=== PATIENT | female | born 2000 | race African-American/Black ===

== ENCOUNTER 2023-09-12 15:16 | Emergency (ER) | payer OTHER ==
[2023-09-12 15:43] VITALS: O2SAT 100
[2023-09-12 16:05] LABS: BASOPHILS % (AUTO) 0.5 %; EOSINOPHILS % (AUTO) 0.3 %; HCT - HEMATOCRIT 44.8 % (37.0-47.0); HGB - HEMOGLOBIN 13.8 g/dL (12.0-16.0); LYMPHOCYTES # (AUTO) 0.9 10^3/uL (1.5-3.5); LYMPHOCYTES % (AUTO) 15.2 %; MEAN CORPUSCULAR HEMOGLOBIN 26.4 pg (27.0-31.0); MEAN CORPUSCULAR HGB CONC 30.8 g/dL (32.0-36.0); MEAN CORPUSCULAR VOLUME 85.7 fL (81.0-99.0); MEAN PLATELET VOLUME 10.3 fL (7.9-10.8); MONOCYTES # (AUTO) 0.5 10^3/uL (0.0-1.0); MONOCYTES % (AUTO) 7.9 %; NEUTROPHILS # (AUTO) 4.5 10^3/uL (1.5-6.6); NEUTROPHILS % (AUTO) 75.9 %; PLT - PLATELET COUNT 249 10^3/uL (130-450); RED BLOOD COUNT 5.23 10^6/uL (4.20-5.40); RED CELL DISTRIBUTION WIDTH 11.8 % (12.0-15.0)
[2023-09-12 16:14] LABS: ALBUMIN 4.2 g/dL (3.2-5.5); ALKALINE PHOSPHATASE 40 IU/L (42-121); ALT ALANINE AMINOTRANSFERASE 22 IU/L (10-60); AST ASPARTATE AMINOTRANSFERASE 19 IU/L (10-42); BUN - BLOOD UREA NITROGEN 9 mg/dL (6-20); CALCIUM 10.2 mg/dL (8.5-10.3); CARBON DIOXIDE - CO2 30 mmol/L (21-32); CHLORIDE 103 mmol/L (101-111); CREATININE 0.6 mg/dL (0.6-1.3); GFR - MDRD 126 (>89); GLUCOSE 106 mg/dL (74-104); POTASSIUM 3.7 mmol/L (3.5-4.5); SODIUM 137 mmol/L (135-145); TOTAL PROTEIN 8.4 g/dL (6.4-8.9)
[2023-09-12 16:26] LABS: LIPASE < 10 U/L (11-82)
--- NOTE | 2023-09-12 17:01 | ED Physician Documentation ---
PD HPI ABD PAIN - Stated complaint Stated Complaint: Pelvic pain - Chief complaint Chief Complaint: Abd Pain - Additional information Additional information: 22-year-old female presents emergency department for generalized abdominal pain. Patient said that she has had episodes of this in the past where she went to the emergency department nothing was found she was given IV fluids and symptoms resolved. Patient said a couple hours ago she started to experience right lower quadrant pain she is not taking Tylenol or ibuprofen for any pain or discomfort she has not had any recent fevers or chills she endorses some mild nausea no emesis. She says her now her pain feels generalized and overall feels like her pain is actually subsided since she has been in the emergency department. She says my main concern is that my intestines are okay because I do not know why this keeps happening. She refers to 2 other episodes of this happening in the past that have self resolved spontaneously on their own. PD PAST MEDICAL HISTORY - Past Medical History Cardiovascular: None Respiratory: None Neuro: None Endocrine/Autoimmune: None GI: None LEASING AGENT: None : None HEENT: None Psych: None Musculoskeletal: None Derm: None - Past Surgical History Past Surgical History: Yes - Present Medications Home Medications: Ambulatory Orders Medication Instructions Recorded Confirmed Ondansetron Odt [Zofran Odt] 4 mg TL Q6H PRN #10 tablet 09/12/23 - Allergies Allergies/Adverse Reactions: Allergies Allergy/AdvReac Type Severity Reaction Status Date / Time No Known Drug Allergies Allergy Verified 09/12/23 15:37 - Social History Does the pt smoke?: No Smoking Status: Never smoker Does the pt drink ETOH?: No Does the pt have substance abuse?: No - Immunizations Immunizations are current?: Yes - POLST Patient has POLST: No PD ED PE NORMAL - Vitals Vital signs reviewed: Yes - General General: Alert and oriented X 3, No acute distress, Well developed/nourished - Cardiac Cardiac: RRR - Respiratory Respiratory: No respiratory distress - Abdomen Abdomen: Normal bowel sounds, Soft, Non tender, Non distended, No organomegaly - Back Back: No CVA TTP - Derm Derm: Normal color, Warm and dry, No rash - Psych Psych: Normal mood, Normal affect Results - Vitals Vitals: Vital Signs - 24 hr 09/12/23 09/12/23 15:39 17:40 Temperature 36.6 C 36.7 C Heart Rate 88 84 Respiratory 16 16 Rate Blood Pressure 128/73 113/67 O2 Saturation 100 100 Oxygen O2 Source Room air - Labs Labs: Laboratory Tests 09/12/23 09/12/23 09/12/23 15:52 15:52 15:52 WBC 6.0 RBC 5.23 Hgb 13.8 Hct 44.8 MCV 85.7 MCH 26.4 L MCHC 30.8 L RDW 11.8 L Plt Count 249 MPV 10.3 Neut # (Auto) 4.5 Lymph # (Auto) 0.9 L Pender # (Auto) 0.5 Eos # (Auto) 0.0 Baso # (Auto) 0.0 Absolute Nucleated RBC 0.00 Nucleated RBC % 0.0 Sodium 137 Potassium 3.7 Chloride 103 Carbon Dioxide 30 Anion Gap 4.0 L BUN 9 Creatinine 0.6 Estimated GFR (MDRD) 126 Glucose 106 H Calcium 10.2 Total Bilirubin 1.0 AST 19 ALT 22 Alkaline Phosphatase 40 L Total Protein 8.4 Albumin 4.2 Globulin 4.2 Albumin/Globulin Ratio 1.0 Lipase < 10 L Serum HCG, Qual NEGATIVE Urine Color Urine Clarity Urine pH Ur Specific [place] Urine Protein Urine Glucose (UA) Urine Ketones Urine Occult Blood Urine Nitrite Urine Bilirubin Urine Urobilinogen Ur Leukocyte Esterase Urine RBC Urine WBC Ur Squamous Epith Cells Urine Bacteria Urine Mucus Ur Microscopic Review Urine Culture Comments Urine HCG, Qual 09/12/23 09/12/23 15:53 15:53 WBC RBC Hgb Hct MCV MCH MCHC RDW Plt Count MPV Neut # (Auto) Lymph # (Auto) Pender # (Auto) Eos # (Auto) Baso # (Auto) Absolute Nucleated RBC Nucleated RBC % Sodium Potassium Chloride Carbon Dioxide Anion Gap BUN Creatinine Estimated GFR (MDRD) Glucose Calcium Total Bilirubin AST ALT Alkaline Phosphatase Total Protein Albumin Globulin Albumin/Globulin Ratio Lipase Serum HCG, Qual Urine Color YELLOW Urine Clarity CLEAR Urine pH 7.0 Ur Specific [place] 1.020 Urine Protein 30 H Urine Glucose (UA) NEGATIVE Urine Ketones NEGATIVE Urine Occult Blood NEGATIVE Urine Nitrite NEGATIVE Urine Bilirubin NEGATIVE Urine Urobilinogen 0.2 (NORMAL) Ur Leukocyte Esterase NEGATIVE Urine RBC None Seen Urine WBC 0-3 Ur Squamous Epith Cells MANY Squamous H Urine Bacteria Few Urine Mucus Marked Strands Ur Microscopic Review INDICATED Urine Culture Comments NOT INDICATED Urine HCG, Qual NEGATIVE PD Medical Decision Making - ED course ED course: 22-year-old female presents emergency department for generalized abdominal pain and discomfort. Originally she is complaining of right lower quadrant pain but now says that it is generalized and very mild. Differentials include but are not limited to ovarian torsion, ovarian cyst, appendicitis, ectopic . Labs are complete for the patient she has no leukocytosis no anemia patient reports her last menstrual cycle was about a week ago she does not have any vaginal bleeding at this point in time she denies any dysuria urinary urgency or frequency. CMP was also complete electrolytes within normal limits and hCG is negative. Urinalysis does not show any signs or symptoms of infection. At this point in time we discussed the possibility of pursuing imaging but patient reports that given her pain has gotten somewhat better she does not think that this is necessary and I agree with her. She was offered Tylenol and ibuprofen for pain and discomfort but kindly declined. She was also offered antinausea medications and was amendable to this. She was given Zofran here in the emergency department and a prescription of Zofran was sent to her preferred pharmacy. Patient was told to follow-up with primary care provider outpatient for further investigation of what is causing these recurrent abdominal pain episodes she is told to keep a food log and diary of when these things are happening to see if she is able to notice any themes. Patient is safe for discharge all questions answered. Departure - Departure Disposition: 01 Home, Self Care Clinical Impression: Nausea & vomiting Qualifiers: Vomiting type: unspecified Qualified Code(s): R11.2 - Nausea with vomiting, unspecified Instructions: Abdominal Pain Prescriptions: Ondansetron Odt [Zofran Odt] 4 mg TL Q6H PRN #10 tablet PRN Reason: Nausea / Vomiting Comments: Thank you for trusting us with your care. We have completed labs and your labs are very reassuring. I do not believe that you meet criteria to get a CT scan at this point in time. In the future way to keep track of your symptoms that you are experiencing at home in regards to his GI issues and see if are able to find any common themes or correlations as to what is triggering the symptoms. 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 I will call you if your hCG test comes back positive if you do not hear from you and that means it is negative. Try warm compresses for abdominal pain and discomfort and eat a bland diet. Wishing you a speedy recovery. Forms: PCP List Discharge Date/Time: 09/12/23 17:40
[2023-09-12] MEDS: ONDANSETRON ODT 4 MG TABLET TL STA (17:25)
[2023-09-12 17:35] LABS: BILIRUBIN,URINE NEGATIVE (NEGATIVE); GLUCOSE, URINE (UA) NEGATIVE (NEGATIVE); KETONES,URINE (UA) NEGATIVE (NEGATIVE); LEUKOCYTE ESTERASE, URINE NEGATIVE (NEGATIVE); NITRITE,URINE NEGATIVE (NEGATIVE); OCCULT BLOOD,URINE NEGATIVE (NEGATIVE); PROTEIN,URINE 30 mg/dL (NEGATIVE); UROBILINOGEN,URINE 0.2 (NORMAL) E.U./dL (NORMAL)
[2023-09-12 17:39] LABS: HCG,QUALITATIVE BLOOD NEGATIVE
[2023-09-12 17:40] LABS: CLARITY,URINE CLEAR (CLEAR)
[2023-09-12 17:41] LABS: HCG UR QUAL NEGATIVE
[2023-09-12 17:48] VITALS: BP 113/67
[2023-09-12 18:06] LABS: BACTERIA,URINE Few /HPF (None Seen); MUCUS,URINE Marked Strands; RBC,URINE None Seen /HPF (0-5); SQUAMOUS EPITHELIAL CELL,UR MANY Squamous (<= Few); WBC,URINE 0-3 /HPF (0-5)
== END 2023-09-12 17:40 | disposition home or self-care (01) ==
LOC: ED 15:16
DX: R11.2 Nausea with vomiting, unspecified (principal)
CPT/HCPCS: 36415; 80053; 81001; 81025; 83690; 84703; 85025; 99283; 99284; Q0162; 81003; 87086